=== PATIENT | male | born 1990 | race Two or more races ===

== ENCOUNTER 2021-09-12 09:28 | Inpatient (IN) | payer OTHER ==
[2021-09-12 11:22] LABS: BASOPHIL 0.2 % (0-2); EOSINOPHIL 0.4 % (0-5); HCT 45.4 % (42.0-52.0); HGB 15.5 g/dl (13.2-18.0); LYMPHOCYTE 10.4 % (15-48); MCH 29.9 pg (25.0-31.0); MCHC 34.1 g/dL (32.0-36.0); MCV 87.5 fL (78.0-100.0); MONOCYTE 9.2 % (0-12); MPV 11.4 fL (6.0-9.5); NEUTROPHIL 79.4 % (41-80); NRBC 0; PLT 285 K/uL (150-400); RBC 5.19 M/uL (4.70-6.00); RDW 13.1 % (11.5-14.0); WBC 16.4 K/uL (4.0-10.5)
[2021-09-12 12:14] LABS: ALBUMIN 3.3 g/dL (3.4-5.0); BUN/CREAT RATIO (CALC) 26.3 RATIO; CREATININE 0.95 mg/dL (0.67-1.17); GLOBULIN (CALCULATION) 5.5 g/dL; POTASSIUM 3.8 mmol/L (3.5-5.1); TOTAL PROTEIN 8.8 g/dL (6.4-8.2)
[2021-09-12 17:27] LABS: BILIRUBIN NEGATIVE (NEGATIVE); BLOOD 2+ Ery/uL (NEGATIVE); CLARITY CLEAR (CLEAR); COLOR YELLOW (YELLOW); GLUCOSE (U) NORMAL (NORMAL); LEUKOCYTES NEGATIVE Leu/uL (NEGATIVE); NITRITE NEGATIVE (NEGATIVE); PROTEIN 1+ mg/dL (NEGATIVE); SPECIFIC GRAVITY 1.025 (1.001-1.030); UROBILINOGEN 0.2 mg/dL (0.2-1.0)
[2021-09-12 17:37] LABS: BACTERIA 1+
[2021-09-12] MEDS ORDERED: CIPROFLOXACIN500 M1 PO (18:44)
--- NOTE | 2021-09-12 23:46 | NUR ---
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 SHOULD BE NPO AFTER MN, TO RING OUT IF HE NEEDED ANYTHING, AND TO LET RN KNOW IF HE IS HAVING ANY PAIN. TRACK BROOM OPERATOR NUMBER [id number]. ER,RN
[2021-09-13 07:29] LABS: HCT 37.8 % (42.0-52.0); HGB 12.7 g/dl (13.2-18.0); MCH 30.2 pg (25.0-31.0); MCHC 33.6 g/dL (32.0-36.0); MCV 89.8 fL (78.0-100.0); MPV 11.3 fL (6.0-9.5); RBC 4.21 M/uL (4.70-6.00); RDW 13.2 % (11.5-14.0); WBC 10.5 K/uL (4.0-10.5)
[2021-09-13 08:07] LABS: BUN/CREAT RATIO (CALC) 17.1 RATIO; CREATININE 0.82 mg/dL (0.67-1.17); POTASSIUM 3.7 mmol/L (3.5-5.1)
--- NOTE | 2021-09-14 04:12 | NUR ---
used plant equipment engineer to introduce self explain assessment and explain plan of care
[2021-09-14] MEDS ORDERED: AUGMENTIN 875-1 EACH PO (13:26)
[2021-09-14] MEDS ORDERED: KETOROLAC TROME10 MG PO (13:26)
[2021-09-14] MEDS ORDERED: ACETAMINOPHEN500 M1 PO (13:26)
--- NOTE | 2021-09-16 17:14 | NUR ---
REQUESTED DR. BOLDEN FOR PT WITH DR. COVARRUBIAS. GAVE INFORMATION TO MARQUIS THIS DATE. MARQUIS WILL ADVISE OF YUAN WELL LET THE PT KNOW THE INFORMATION.
== END 2021-09-14 15:53 | disposition home or self-care (01) | DRG 871 ==
LOC: FER 09:28 → FMS 12:44
PROVIDERS: Emergency Medicine; Nurse Practitioner Acute Care; ADMIT Internal Medicine
PROC: 3E02340 Introduction of Influenza Vaccine into Muscle, Percutaneous Approach (ICD-10-PCS; 2021-09-12)
PROC: 0W9J30Z Drainage of Pelvic Cavity with Drainage Device, Percutaneous Approach (ICD-10-PCS; principal; 2021-09-13)
DX: A41.9 Sepsis, unspecified organism (principal); K35.33 Acute appendicitis with perforation, localized peritonitis, and gangrene, with abscess; E87.1 Hypo-osmolality and hyponatremia; N39.0 Urinary tract infection, site not specified; Z20.822 Contact with and (suspected) exposure to COVID-19; K76.0 Fatty (change of) liver, not elsewhere classified; Z23 Encounter for immunization
CPT/HCPCS: 36415; 75989; 80048; 80053; 81001; 83605; 83690; 85025; 87040; 87070; 87077; 87088; 87186; 87205; 90686; 94010; J2250; J2270; J2405; J2543; J3010; J7030; U0002

== ENCOUNTER 2021-09-19 11:14 | Inpatient (IN) | payer OTHER ==
[~2021-09-19 11:14] MED LIST: ACETAMINOPHEN500 M1 PO; AUGMENTIN 875-1 EACH PO; CIPROFLOXACIN500 M1 PO; KETOROLAC TROME10 MG PO
[2021-09-19 12:39] LABS: BASOPHIL 0.4 % (0-2); EOSINOPHIL 2.2 % (0-5); HCT 39.9 % (42.0-52.0); HGB 13.2 g/dl (13.2-18.0); LYMPHOCYTE 14.7 % (15-48); MCH 30.1 pg (25.0-31.0); MCHC 33.1 g/dL (32.0-36.0); MCV 91.1 fL (78.0-100.0); MONOCYTE 8.2 % (0-12); MPV 9.6 fL (6.0-9.5); NEUTROPHIL 73.8 % (41-80); NRBC 0; PLT 709 K/uL (150-400); RBC 4.38 M/uL (4.70-6.00); RDW 13.8 % (11.5-14.0); WBC 13.8 K/uL (4.0-10.5)
[2021-09-19 13:16] LABS: ALBUMIN 2.7 g/dL (3.4-5.0); BILIRUBIN - TOTAL 0.4 mg/dL (0.2-1.0); BUN/CREAT RATIO (CALC) 20.5 RATIO; CREATININE 0.78 mg/dL (0.67-1.17); GLOBULIN (CALCULATION) 5.2 g/dL; POTASSIUM 4.3 mmol/L (3.5-5.1); TOTAL PROTEIN 7.9 g/dL (6.4-8.2)
[2021-09-19 13:20] LABS: BILIRUBIN NEGATIVE (NEGATIVE); BLOOD 1+ Ery/uL (NEGATIVE); CLARITY CLEAR (CLEAR); COLOR YELLOW (YELLOW); GLUCOSE (U) NORMAL (NORMAL); LEUKOCYTES NEGATIVE Leu/uL (NEGATIVE); NITRITE NEGATIVE (NEGATIVE); PROTEIN NEGATIVE (NEGATIVE); UROBILINOGEN 0.2 mg/dL (0.2-1.0)
[2021-09-19 13:29] LABS: URINARY RBC RARE; URINARY WBC RARE
--- NOTE | 2021-09-19 16:18 | NUR ---
HEATHER CHO WITH SCHEDULING PT. HAS AN APPT WITH DR. COVARRUBIAS FOR 10/02/21 @ 10:00 A.M.
[2021-09-20 06:41] LABS: BASOPHIL 0.3 % (0-2); EOSINOPHIL 2.9 % (0-5); HCT 38.8 % (42.0-52.0); HGB 12.8 g/dl (13.2-18.0); LYMPHOCYTE 14.4 % (15-48); MCH 29.8 pg (25.0-31.0); MCV 90.2 fL (78.0-100.0); MONOCYTE 9.2 % (0-12); MPV 9.6 fL (6.0-9.5); NEUTROPHIL 72.5 % (41-80); NRBC 0; PLT 736 K/uL (150-400); RDW 13.7 % (11.5-14.0); WBC 13.2 K/uL (4.0-10.5)
[2021-09-23 08:07] LABS: BASOPHIL 0.5 % (0-2); EOSINOPHIL 4.1 % (0-5); HCT 41.3 % (42.0-52.0); HGB 13.5 g/dl (13.2-18.0); LYMPHOCYTE 27.1 % (15-48); MCH 30.1 pg (25.0-31.0); MCHC 32.7 g/dL (32.0-36.0); MCV 92.2 fL (78.0-100.0); MONOCYTE 8.6 % (0-12); MPV 9.4 fL (6.0-9.5); NEUTROPHIL 58.6 % (41-80); NRBC 0; PLT 850 K/uL (150-400); RBC 4.48 M/uL (4.70-6.00); RDW 13.5 % (11.5-14.0); WBC 7.9 K/uL (4.0-10.5)
--- NOTE | 2021-09-23 11:44 | NUR ---
ADVISED DR. MENDEZ OF FOLLOW UP APPT. ON 10/02/21 @ 10:00 A.M. ADVISED NURSE, ANTONIO WELL.
--- NOTE | 2021-09-23 15:41 | NUR ---
[facility] DENIED PT THEY HAVE NO STAFF OR DON NOT ACCEPT HIS INSURANC. ADVISED NURSE ANTONIO. ANTONIO STATED THAT DR. MENDEZ HAS INSTRUCTED PT ON HOW TO FLUSE THE DRAIN. ANTONIO STATED THAT SHE WOULD ALSO INSTRUCT PT ON HOW TO IRRIGATE THE DRAIN WELL.
[2021-09-23] MEDS ORDERED: DIFLUCAN150 MG PO (16:39)
[2021-09-23] MEDS ORDERED: CLEOCIN300 MG PO (16:39)
[2021-09-23] MEDS ORDERED: LACTINEX1 EACH PO ×2 (16:39→16:41)
[2021-09-23] MEDS ORDERED: PERCOCET 5-3251 EACH PO (16:39)
[2021-09-23] MEDS ORDERED: METRONIDAZOLE500 MG PO (16:39)
== END 2021-09-23 17:45 | disposition home or self-care (01) | DRG 862 ==
LOC: FER 11:14 → FMS 15:04
PROVIDERS: Emergency Medicine; ADMIT Surgery
DX: T81.49XA Infection following a procedure, other surgical site, initial encounter (principal); K65.1 Peritoneal abscess; R74.8 Abnormal levels of other serum enzymes; Z20.822 Contact with and (suspected) exposure to COVID-19; K76.0 Fatty (change of) liver, not elsewhere classified; Z87.440 Personal history of urinary (tract) infections; Z90.49 Acquired absence of other specified parts of digestive tract
CPT/HCPCS: 36415; 80053; 81001; 84145; 85025; 87040; 87070; 87075; 87077; 87205; G0378; J1170; J2543; J7120; Q9967; U0002